=== PATIENT | female | born 1960 | race Caucasian/White ===

== ENCOUNTER 2017-07-14 09:11 | Emergency (ER) | payer OTHER, MEDICAID ==
[~2017-07-14] VITALS: Ht 162.6 cm; Wt 74.5 kg
[2017-07-14 09:14] VITALS: Ht 162.6 cm; Wt 74.5 kg
[2017-07-14] MEDS ORDERED: ASPIRIN 325 MG TAB PO STA (09:25)
--- NOTE | 2017-07-14 10:09 | ERD ---
ER Documentation Chief Complaint Date/Time DATE: 07/14/17 TIME: 10:04 Chief Complaint CHEST PAIN UNABLE TO SAY WHEN IT STARTED HPI 57-year-old previously healthy female presenting with chest pain since this morning. Currently she denies any pain. The pain was in the left side of her chest, pressure-like, radiating to her left shoulder. Pain was nonexertional, lasting only 10 minutes. She had associated palpitations and nausea. No vomiting. She has had issues with her blood pressure before in the past. Today her blood pressure kept going up and down as did her heart rate. She was very worried so she came in. Currently she feels much better. No fevers, chills, vomiting, recent illness. No family history of serious medical problems. ROS All systems reviewed and are negative except as per history of present illness. PMhx/Soc Medical and Surgical Hx: pt denies Medical Hx, pt denies Surgical Hx History of Surgery: No Anesthesia Reaction: No Hx Neurological Disorder: No Hx Respiratory Disorders: No Hx Cardiac Disorders: No Hx Psychiatric Problems: No Hx Alcohol Use: Yes (Occasionally) Hx Substance Use: No Smoking Status: Current some day smoker FmHx Family History: No coronary disease, No diabetes Physical Exam Vitals Vital Signs Date Time Temp Pulse Resp B/P Pulse Ox O2 Delivery O2 Flow Rate FiO2 07/14/17 13:32 62 16 88/65 99 Room Air 07/14/17 10:30 98.3 73 20 101/73 100 Room Air 07/14/17 09:57 Nasal Cannula 07/14/17 09:14 98.0 56 18 110/76 99 Physical Exam Const: Well-appearing, no apparent distress Head: Atraumatic Eyes: Normal Conjunctiva ENT: Normal External Ears, Nose and Mouth. Neck: Full range of motion..~ No meningismus. Resp: Clear to auscultation bilaterally Cardio: Regular rate and rhythm, no murmurs. 2+ distal pulses in all 4 extremities Abd: Soft, non tender, non distended. Normal bowel sounds Skin: No petechiae or rashes Back: No midline or flank tenderness Ext: No cyanosis, or edema Neur: Awake and alert Psych: Normal Mood and Affect Result Diagram: 07/14/17 0952 07/14/17 0952 Results 24 hrs Laboratory Tests Test 07/14/17 09:52 07/14/17 12:55 White Blood Count 5.710^3/ul Red Blood Count 4.3610^6/ul Hemoglobin 13.3g/dl Hematocrit 38.4% Mean Corpuscular Volume 88.1fl Mean Corpuscular Hemoglobin 30.5pg Mean Corpuscular Hemoglobin Concent 34.6g/dl Red Cell Distribution Width 12.7% Platelet Count 28269^3/UL Mean Platelet Volume 11.5fl Neutrophils % 71.4% Lymphocytes % 21.2% Monocytes % 5.1% Eosinophils % 1.2% Basophils % 0.7% Nucleated Red Blood Cells % 0.0/100WBC Neutrophils # (Manual) 410^3/ul Lymphocytes # 1.210^3/ul Monocytes # 0.310^3/ul Eosinophils # 0.110^3/ul Basophils # 0.010^3/ul Nucleated Red Blood Cells # 0.010^3/ul Sodium Level 142mmol/L Potassium Level 3.7mmol/L Chloride Level 105mmol/L Carbon Dioxide Level 26mmol/L Anion Gap 15 Blood Urea Nitrogen 23mg/dl Creatinine 0.82mg/dl Glucose Level 116mg/dl Calcium Level 9.6mg/dl Troponin I < 0.012ng/ml < 0.012ng/ml Current Medications Medications (Trade) Dose Ordered Sig/Beth Route PRN Reason Start Time Stop Time Status Last Admin Dose Admin Aspirin (Aspirin) 325 mg ONCE STAT PO 07/14/17 09:25 07/14/17 09:27 DC 07/14/17 10:22 Procedures/[facility] EMERGENT LABS AND DIAGNOSTIC STUDIES: Lab Results above were reviewed and interpreted by me. CBC: no anemia or evidence of infection BMP: No evidence of electrolyte abnormality, renal failure, hypoglycemia Troponin within normal limits 12-lead EKG was interpreted by Ambrocio Nicole MD: Normal Sinus Rhythm with sinus arrhythmia Normal axis Normal intervals Mild ST depressions in anterolateral leads with ST depressions in II, III and aVF as well. No significant ST elevations. No acute STEMI. Repeat 12-lead EKG was interpreted by Ambrocio Nicole MD: Normal Sinus Rhythm Normal axis Normal intervals No significant ST changes No acute STEMI. Repeat 12-lead EKG was interpreted by Ambrocio Nicole MD: Normal Sinus Rhythm Normal axis Normal intervals No significant ST changes No acute STEMI. Radiology Results as interpreted by Radiology below were reviewed by Diana Nicole MD: Chest Xray: No acute abnormalities Initial Nursing notes reviewed. Previous Medical Records requested via the Electronic Health Record. EMERGENCY DEPARTMENT COURSE / MEDICAL DECISION MAKING: The patient presents with chest pain. Vitals are stable. I considered pulmonary embolism, aortic dissection, pneumothorax among other diagnoses. Evaluation for acute coronary syndrome was performed. The HEART score was utilized for risk stratification and found to be 2. Repeat EKG and troponin @ 3 hours were unchanged. Based on this evaluation the patient's risk of major adverse cardiac events is <1%. However given her initial EKG, I would prefer her to stay and do a stress test during her admission as she does not have established follow- up with a primary care physician but she does have a physician assigned to her. Shared decision making occurred with patient and the decision has been made to discharge the patient for outpatient evaluation and functional study within 72 hours. She really would like to go home. I discussed with her the risks of this being cardiac ischemia, however the patient states that she would like to go home if her tests today were normal and will return immediately if her symptoms get worse. He was welcome to return to the ED whenever she would like. Patient instructed to arrange follow up with PCP in the next 2 days and return to the ED for any new or worsening symptoms. Departure Diagnosis: Primary Impression: Chest pain Chest pain type: unspecified Qualified Code: R07.9 - Chest pain, unspecified type Condition: Stable JIM NICOLE MD Jul 14, 2017 10:09
[2017-07-14 10:17] LABS: BASOPHILS % 0.7 % (0.0-2.0); EOSINOPHILS # 0.1 10^3/ul (0.0-0.5); EOSINOPHILS % 1.2 % (0.0-7.0); HEMATOCRIT 38.4 % (37.0-47.0); HEMOGLOBIN 13.3 g/dl (12.0-16.0); LYMPHOCYTES # 1.2 10^3/ul (0.8-2.9); LYMPHOCYTES % 21.2 % (15.0-51.0); MEAN CORPUSCULAR HEMOGLOBIN 30.5 pg (29.0-33.0); MEAN CORPUSCULAR HGB CONC 34.6 g/dl (32.0-37.0); MEAN CORPUSCULAR VOLUME 88.1 fl (82.0-101.0); MEAN PLATELET VOLUME 11.5 fl (7.4-10.4); MONOCYTE # 0.3 10^3/ul (0.3-0.9); MONOCYTES % 5.1 % (0.0-11.0); NEUTROPHILS % 71.4 % (39.0-77.0); PLATELET COUNT 238 10^3/UL (140-415); RED BLOOD COUNT 4.36 10^6/ul (4.20-5.40); RED CELL DISTRIBUTION WIDTH 12.7 % (11.5-14.5); WHITE BLOOD COUNT 5.7 10^3/ul (4.8-10.8)
--- NOTE | 2017-07-14 10:17 | RADRPT ---
PROCEDURE: Chest Radiograph. CLINICAL INDICATION: Chest pain TECHNIQUE: Single frontal chest radiograph. COMPARISON: None available FINDINGS: The cardiomediastinal silhouette is within normal limits. No infiltrate or effusion is seen. Th e bones are intact. IMPRESSION: 1. Unremarkable chest radiograph. RPTAT: KK .Terry Sinclair MD, MD Date Time Electronically viewed and signed by .Terry Sinclair MD, on 07/14/2017 10:17 .B/
[2017-07-14 10:46] LABS: ANION GAP 15 (8-16); BLOOD UREA NITROGEN 23 mg/dl (7-20); CALCIUM 9.6 mg/dl (8.4-10.2); CARBON DIOXIDE 26 mmol/L (21-31); CHLORIDE 105 mmol/L (97-110); CREATININE 0.82 mg/dl (0.44-1.00); GLUCOSE 116 mg/dl (70-220); POTASSIUM 3.7 mmol/L (3.5-5.1); SODIUM 142 mmol/L (135-144)
[2017-07-14 11:04] LABS: TROPONIN-I < 0.012 ng/ml (0.00-0.12)
[2017-07-14 14:13] VITALS: BP 101/66; PULSE 73; RESP 16; TEMP 98.7
== END 2017-07-14 14:51 | disposition left against medical advice (07) ==
LOC: E/R 09:11
DX: R07.9 Chest pain, unspecified (principal); F17.210 Nicotine dependence, cigarettes, uncomplicated; R40.2142 Coma scale, eyes open, spontaneous, at arrival to emergency department; R40.2252 Coma scale, best verbal response, oriented, at arrival to emergency department; R40.2362 Coma scale, best motor response, obeys commands, at arrival to emergency department
CPT/HCPCS: 36415; 71010; 80048; 84484; 85025; 93005; Z7502; Z7610

== ENCOUNTER 2017-09-26 13:51 | Emergency (ER) | payer OTHER ==
[~2017-09-26] VITALS: Wt 78.0 kg
[2017-09-26] MEDS ORDERED: KETOROLAC 30 MG INJ IM STA (14:17)
[2017-09-26] MEDS ORDERED: predniSONE 20 MG TAB PO ONE (14:30)
--- NOTE | 2017-09-26 14:39 | ERD ---
ER Documentation Chief Complaint Chief Complaint BACK PAIN FOLLOWING INJURY AT WORK HPI This is a 57-year-old female who presents the emergency department today complaining of low back pain into her leg for the past week. 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 Patient states that she was just using home remedies and some cream for the pain and some Tylenol. States that she reinjured it again today. States she has not called her primary care doctor. Denies any fevers or chills , loss of bowel or bladder control. ROS All systems reviewed and are negative except as per history of present illness. Medications Home Meds Active Scripts Prednisone* (Prednisone*) 20 Mg Tab, 40 MG PO DAILY for 4 Days, TAB Prov:CASEY BABCOCK PA-C 09/26/17 Cyclobenzaprine Hcl* (Cyclobenzaprine Hcl*) 10 Mg Tablet, 10 MG PO QHS, #7 TAB Prov:CASEY BABCOCK PA-C 09/26/17 Naproxen* (Naprosyn*) 500 Mg Tablet, 500 MG PO BID Y for PAIN AND/OR INFLAMMATION, #30 TAB Prov:CASEY BABCOCK PA-C 09/26/17 Tramadol HCl (Tramadol HCl) 50 Mg Tablet, 50 MG PO Q4 Y for PAIN, #20 TAB Prov:CASEY BABCOCK PA-C 09/26/17 PMhx/Soc History of Surgery: No Anesthesia Reaction: No Hx Neurological Disorder: No Hx Respiratory Disorders: No Hx Cardiac Disorders: No Hx Psychiatric Problems: No Hx Alcohol Use: Yes (Occasionally) Hx Substance Use: No Hx Tobacco Use: No Smoking Status: Never smoker Physical Exam Vitals Vital Signs Date Time Temp Pulse Resp B/P Pulse Ox O2 Delivery O2 Flow Rate FiO2 09/26/17 13:52 98.0 79 18 137/81 99 Physical Exam Const: sitting in wheelchair, NAD Head: Atraumatic Eyes: Normal Conjunctiva ENT: Normal External Ears, Nose and Mouth. Neck: Full range of motion..~ No meningismus. Resp: Clear to auscultation bilaterally Cardio: Regular rate and rhythm, no murmurs Abd: Soft, non tender, non distended. Normal bowel sounds Skin: No petechiae or rashes Back: Lumbar spine with midline tenderness and left-sided paraspinal tenderness. Positive straight leg raise. Pulses 2+. Distal neurovascularly intact. No CVA tenderness. Ext: No cyanosis, or edema Neur: Awake and alert Psych: Normal Mood and Affect Results 24 hrs Laboratory Tests Test 09/26/17 14:25 Urine Color YELLOW Urine Clarity CLEAR Urine pH 5.0 Urine Specific [place] 1.011 Urine Ketones NEGATIVEmg/dL Urine Nitrite NEGATIVEmg/dL Urine Bilirubin NEGATIVEmg/dL Urine Urobilinogen NEGATIVEmg/dL Urine Leukocyte Esterase TRACELeu/ul Urine Microscopic RBC 1/HPF Urine Microscopic WBC 3/HPF Urine Mucus FEW/HPF Urine Hemoglobin NEGATIVEmg/dL Urine Glucose NEGATIVEmg/dL Urine Total Protein NEGATIVEmg/dl Current Medications Medications (Trade) Dose Ordered Sig/Beth Route PRN Reason Start Time Stop Time Status Last Admin Dose Admin Ketorolac Tromethamine (Toradol) 30 mg ONCE STAT IM 09/26/17 14:17 09/26/17 14:19 DC 09/26/17 14:31 Prednisone (Prednisone) 60 mg ONCE ONCE PO 09/26/17 14:30 09/26/17 14:31 DC 09/26/17 14:31 DIAGNOSTIC IMAGING REPORT Patient: JAS ARIAS : 1960 Age: 57 Sex: F [id number] DOS: 09/26/17 0000 Ordering MD: CASEY BABCOCK PA-C Location: [facility] Room/Bed: PROCEDURE: CT lumbar spine without contrast. CLINICAL INDICATION: Back pain with radicular symptoms TECHNIQUE: CT of the lumbar spine without contrast was performed on a multidetector CT scanner, with multiplanar reformats. One or more of the following dose reduction techniques were used: Automated exposure control, adjustment in mA and / or kV according to patient size, use of iterative reconstructive technique. CTDIvol = 13 mGy and DLP = 397 mGy-cm. COMPARISON: None available. FINDINGS: No fracture or dislocation is identified. There is preservation of the lordosis of the lumbar spine. There is mild levoconvex lumbar scoliosis. There is mild grade 1 anterolisthesis at L3-4 without associated spondylolysis. There is mild retrolisthesis at L5-S1. Minimal - mild anterior osteophytes are seen at multiple levels. There is to mild moderate disc space narrowing at L5- S1. T12-L1: No disc bulge or herniation is identified. There is mild facet arthropathy There is no central canal stenosis or foraminal narrowing. L1-L2: There is mild posterior disc bulging. There is mild facet arthropathy. There is no central canal stenosis. L2-L3: There is mild posterior disc bulging. There is mild facet arthropathy. No significant central canal stenosis or foraminal narrowing is identified. L3-L4: There is posterior disc bulging. There is severe facet arthropathy with ligamentum flavum hypertrophy. There is mild-moderate central canal stenosis. There is mild right foraminal narrowing. L4-L5: There is posterior disc bulging. There is moderate facet arthropathy with ligamentum flavum hypertrophy. There is mild central canal stenosis. No significant foraminal narrowing is identified.. L5-S1: There is posterior disc bulging. There is mild moderate facet arthropathy with ligamentum flavum hypertrophy. There is mild central canal stenosis. There is mild left foraminal narrowing. IMPRESSION: 1. No fracture/dislocation. 2. Lumbar spondylosis/degenerative enthesopathy, with grade 1 anterolisthesis at L3-4 and mild retrolisthesis at L5-S1. 3. Mild levoconvex lumbar scoliosis. 4. Mild to moderate central canal stenosis at L3-4, and mild central canal stenosis at L4-5 and L5-S1. 5. Mild right foraminal narrowing at L3-4 and mild left foraminal narrowing at L5-S1. 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 Patient had some midline tenderness and left-sided paraspinal tenderness and pain into her left leg and therefore did obtain a CT scan as patient appear to be in a fair amount of pain. UA shows trace leukocyte esterase. CT of the lumbar spine shows no fracture dislocation. There is lumbar spondylosis and degenerative changes with grade 1 anterolisthesis L3 and 4 and mild retrolisthesis at L5 and S1. There is mild to moderate central canal stenosis at L3 and 4 and mild central canal stenosis at L4 and 5 and 5 and S1. There is mild right foraminal narrowing at L3 and 4 and mild left foraminal narrowing L5 and S1. Patient symptoms at this time is consistent with acute on chronic back pain likely secondary to degenerative changes and degenerative disc disease. There is no acute fracture dislocation. Is afebrile and otherwise well-appearing. Patient has no loss of bowel or bladder control have low suspicion for cauda equina or abscess. Patient was given Toradol and prednisone here in the emergency department. She will be given a prescription for tramadol, prednisone, Naprosyn and Flexeril for home. At this time the patient is stable for discharge and outpatient management. Patient should follow up with their PCP in the next 1-2 days. They may return to the emergency department sooner for any persistent or worsening of symptoms. Patient understood and agreed with the plan. Departure Diagnosis: Primary Impression: Injury of back Encounter type: initial encounter Qualified Code: S39.92XA - Injury of back , initial encounter Condition: Fair CASEY BABCOCK PA-C Sep 26, 2017 14:39
--- NOTE | 2017-09-26 15:21 | RADRPT ---
PROCEDURE: CT lumbar spine without contrast. CLINICAL INDICATION: Back pain with radicular symptoms TECHNIQUE: CT of the lumbar spine without contrast was performed on a multidetector CT scanner, wi th multiplanar reformats. One or more of the following dose reduction techniques were used: Automat ed exposure control, adjustment in mA and / or kV according to patient size, use of iterative recons tructive technique. CTDIvol = 13 mGy and DLP = 397 mGy-cm. COMPARISON: None available. FINDINGS: No fracture or dislocation is identified. There is preservation of the lordosis of the lumbar spine . There is mild levoconvex lumbar scoliosis. There is mild grade 1 anterolisthesis at L3-4 without associated spondylolysis. There is mild retrolisthesis at L5-S1. Minimal - mild anterior osteophyte s are seen at multiple levels. There is to mild moderate disc space narrowing at L5-S1. T12-L1: No disc bulge or herniation is identified. There is mild facet arthropathy There is no cent ral canal stenosis or foraminal narrowing. L1-L2: There is mild posterior disc bulging. There is mild facet arthropathy. There is no central c anal stenosis. L2-L3: There is mild posterior disc bulging. There is mild facet arthropathy. No significant centra l canal stenosis or foraminal narrowing is identified. L3-L4: There is posterior disc bulging. There is severe facet arthropathy with ligamentum flavum hyp ertrophy. There is mild-moderate central canal stenosis. There is mild right foraminal narrowing. L4-L5: There is posterior disc bulging. There is moderate facet arthropathy with ligamentum flavum h ypertrophy. There is mild central canal stenosis. No significant foraminal narrowing is identified. . L5-S1: There is posterior disc bulging. There is mild moderate facet arthropathy with ligamentum fla vum hypertrophy. There is mild central canal stenosis. There is mild left foraminal narrowing. IMPRESSION: 1. No fracture/dislocation. 2. Lumbar spondylosis/degenerative enthesopathy, with grade 1 anterolisthesis at L3-4 and mild retr olisthesis at L5-S1. 3. Mild levoconvex lumbar scoliosis. 4. Mild to moderate central canal stenosis at L3-4, and mild central canal stenosis at L4-5 and L5- S1. 5. Mild right foraminal narrowing at L3-4 and mild left foraminal narrowing at L5-S1. RPTAT: VV .Guevara Self MD, Date Time Electronically viewed and signed by .Guevara Self MD, on 09/26/2017 15:21 .O/
[2017-09-26] MEDS ORDERED: TRAM50TA2 PO (15:40)
[2017-09-26] MEDS ORDERED: NAPR-260 PO (15:40)
[2017-09-26] MEDS ORDERED: CYCL-319 PO (15:41)
[2017-09-26] MEDS ORDERED: PRED20TA PO (15:41)
== END 2017-09-26 16:02 | disposition home or self-care (01) ==
LOC: FTE 13:51
DX: S39.92XA Unspecified injury of lower back, initial encounter (principal); X58.XXXA Exposure to other specified factors, initial encounter; Y92.89 Other specified places as the place of occurrence of the external cause
CPT/HCPCS: 72131; 81001; 96372; J1885; J7512; Z7502